=== PATIENT | male | born 1995 | race Native Hawaiian/Other Pacific Islander ===

== ENCOUNTER 2018-07-14 09:11 | Emergency (ER) | payer OTHER ==
--- NOTE | 2018-07-14 09:38 | UC ---
Lower Extremity/Ankle HPI - HPI Summary HPI Summary: 22-year-old Sinhala-speaking male who stepped on a nail this morning which went through a boot. The history of present illness was obtained through use of a peanut butter maker. Patient is unsure of his last tetanus immunization. - History of Current Complaint Stated Complaint: LEFT FOOT PUNCTURE WOUND (WC) Time Seen by Provider: 07/14/18 09:22 Hx Obtained From: Patient Onset/Duration: Sudden Onset Severity Initially: Mild Severity Currently: Mild Aggravating Factor(s): Nothing Alleviating Factor(s): Nothing Able to Bear Weight: Yes Related History: Occupational Injury - Allergies/Home Medications Allergies/Adverse Reactions: Allergies Allergy/AdvReac Type Severity Reaction Status Date / Time No Known Allergies Allergy Verified 07/14/18 09:42 Home Medications: Home Medications NK [No Home Medications Reported] 07/14/18 [History Confirmed 07/14/18] PMH/Surg Hx/FS Hx/Imm Hx Previously Healthy: Yes - Family History Known Family History: Positive: Non-Contributory - Social History Occupation: Employed Full-time Alcohol Use: None Review of Systems All Other Systems Reviewed And Are Negative: Yes Skin: Positive: Other - Puncture wound to left great toe. Is Patient Immunocompromised?: No Physical Exam Triage Information Reviewed: Yes Appearance: Well-Appearing, No Pain Distress, Well-Nourished Vital Signs Reviewed: Yes Musculoskeletal: Positive: Strength Intact, ROM Intact Neurological: Positive: Alert, Muscle Tone Normal, Other: - Good peripheral pulses neuro sensation capillary refill. Skin: Positive: Other - Puncture wound to left great toe. Lower Extremity Course/Dx - Course Course Of Treatment: Left foot:FINDINGS: Along the plantar surface of the left great 2 there is a punctate dense focus immediately beneath the dermis. The adequately corticated bones are properly aligned. Joint spaces appear maintained. No fracture, dislocation or focal bony abnormality is seen. IMPRESSION: POSSIBLE PUNCTATE FOREIGN BODY ALONG THE PLANTAR SURFACE OF THE LEFT GREAT TOE. PLEASE CORRELATE TO PHYSICAL EXAMINATION. The great toe was irrigated with copious amounts of normal saline, one small piece of dirt was removed without difficulty. Band-Aid was applied. The patient was given Tdap tetanus immunization. Instructions were given to him using the peanut butter maker for follow-up in case of infection. The patient verbalized understanding of all instructions given him. - Differential Dx/Diagnosis Provider Diagnosis: Puncture wound of toe of left foot Discharge - Sign-Out/Discharge Documenting (check all that apply): Patient Departure All imaging exams completed and their final reports reviewed: Yes - Discharge Plan Condition: Fair Disposition: HOME Patient Education Materials: Puncture Wound (DC) Print Language: MALAY Referrals: [facility] [Outside] No Primary Care Phys,NOPCP [Primary Care Provider] - Additional Instructions: Watch for signs of infection such as red streaks, pus drainage and follow up at the [facility] if you develop signs of infection. You were given Tdap tetanus immunization today which is good for8- 10 years. Change the bandaid daily. - Billing Disposition and Condition Condition: FAIR Disposition: Home - Attestation Statements Provider Attestation: Per institutional requirements, I have reviewed the chart, however, I was not consulted specifically or made aware of this patient by the midlevel provider. I did not personally evaluate, interact with , or disposition this patient.
[2018-07-14 09:41] VITALS: BP 118/69
[2018-07-14] MEDS ORDERED: Tetan/Diph/Pertus SYR(Tdap)* 0.5 ML SYR(BOOSTRIX) use SYR IM ONE (10:14)
== END 2018-07-14 10:53 | disposition home or self-care (01) ==
LOC: UCCORT 09:11
DX: S91.142A Puncture wound with foreign body of left great toe without damage to nail, initial encounter (principal); W45.0XXA Nail entering through skin, initial encounter; Y92.9 Unspecified place or not applicable; Y99.0 Civilian activity done for income or pay; Z23 Encounter for immunization
CPT/HCPCS: 90471; 90715; 99201; G0463